=== PATIENT | female | born 1980 | race Caucasian/White ===

== ENCOUNTER 2020-03-14 02:52 | Emergency (ER) | payer BC ==
--- NOTE | 2020-03-14 03:39 | ER Document Report ---
ED Psych Disorder / Suicide - General Stated Complaint: MANIC STATE Time Seen by Provider: 03/14/20 03:14 Primary Care Provider: JIM PANG MD [Primary Care Provider] - Follow up as needed Mode of Arrival: Ambulatory Information source: Patient Notes: 39-year-old female patient with history of mental illness presents emergency department with concerns for lack of sleep, suicidal ideations, and angry outburst. Her spouse is with her, he states that she was walking outside naked and that she tried lighting the stove and leaving it on. He states she has been under a lot of stress lately. TRAVEL OUTSIDE OF THE [place] IN LAST 30 DAYS: No - Related Data Allergies/Adverse Reactions: erythromycin base [Erythromycin Base] Allergy (Mild, Verified 11/02/13 13:37) Past Medical History - General Information source: Patient - Social History Smoking Status: Never Smoker Frequency of alcohol use: None Drug Abuse: None Family History: Reviewed & Not Pertinent Psychiatric Medical History: Reports: Hx Depression, Hx Schizophrenia - Immunizations Hx Diphtheria, Pertussis, Tetanus Vaccination: Yes Review of Systems - Review of Systems Constitutional: No symptoms reported EENT: No symptoms reported Cardiovascular: No symptoms reported Respiratory: No symptoms reported Gastrointestinal: No symptoms reported Genitourinary: No symptoms reported Female Genitourinary: No symptoms reported Musculoskeletal: No symptoms reported Skin: No symptoms reported Hematologic/Lymphatic: No symptoms reported Neurological/Psychological: See HPI Physical Exam - Vital signs Vitals: Temp Pulse Resp BP Pulse Ox 98.4 F 98 20 145/95 H 99 03/14/20 03:00 03/14/20 03:00 03/14/20 03:00 03/14/20 03:00 03/14/20 03:00 - Notes Notes: PHYSICAL EXAMINATION: GENERAL: Well-appearing, well-nourished. HEAD: Atraumatic, normocephalic. EYES: Pupils equal round and reactive to light, extraocular movements intact, conjunctiva are normal. ENT: Nares patent, oropharynx clear without exudates. Moist mucous membranes. NECK: Normal range of motion, supple without lymphadenopathy LUNGS: Breath sounds clear to auscultation bilaterally and equal. No wheezes rales or rhonchi. HEART: Regular rate and rhythm without murmurs ABDOMEN: Soft, nontender, nondistended abdomen. No guarding, no rebound. No masses appreciated. Female : deferred Musculoskeletal: Normal range of motion, no pitting or edema. No cyanosis. NEUROLOGICAL: Cranial nerves grossly intact. Normal speech, normal gait. Normal sensory, motor exams PSYCH: Flat affect, flight of ideas, patient using word salad. SKIN: Warm, Dry, normal turgor, no rashes or lesions noted. Course - Re-evaluation Re-evalutation: 03/14/20 06:54 Patient was placed on IVC papers immediately after evaluation. She is alert to self and place but is not making any logical sense. Patient keeps yelling out illogical sentences. Her significant other reports she was running out the front door naked. He states that she has been seen for mental health issues in the past. She will be seen by psych later on this morning. She is medically cleared at this time. - Vital Signs Vital signs: Temp Pulse Resp BP Pulse Ox 98.4 F 98 20 145/95 H 99 03/14/20 03:00 03/14/20 03:00 03/14/20 03:00 03/14/20 03:00 03/14/20 03:00 - Laboratory Result Diagrams: 03/14/20 04:25 03/14/20 04:25 Laboratory results interpreted by me: 03/14/20 03/14/20 03/14/20 04:25 04:25 04:25 WBC 11.9 H MCV 78 L MCH 25.1 L RDW 16.7 H Absolute Neuts (auto) 8.3 H BUN 6 L Glucose 120 H Urine Blood SMALL H Salicylates < 1.0 L Acetaminophen < 10 L - EKG Interpretation by Fl EKG shows normal: Sinus rhythm Rate: Normal Rhythm: NSR - rate 71, normal axis, normal intervals Discharge - Discharge Clinical Impression: Bizarre behavior, Agitated depression, Non compliance w medication regimen Condition: Stable Disposition: PSYCH HOSP/UNIT Referrals: JIM PANG MD [Primary Care Provider] - Follow up as needed
[2020-03-14] MEDS ORDERED: HALOPERIDOL LACTATE INJ 5 MG/1 ML VIAL IM ONE (04:34)
[2020-03-14] MEDS ORDERED: LORAZEPAM INJ 2 MG/1 ML VIAL IM ONE (04:34)
[2020-03-14] MEDS ORDERED: DIPHENHYDRAMINE HCL 50 MG/ML VIAL IM ONE (04:35)
[2020-03-14 05:12] LABS: ABSOLUTE BASOPHILS # (AUTO) 0.1 10^3/uL (0.0-0.2); ABSOLUTE EOSINOPHILS # (AUTO) 0.1 10^3/uL (0.0-0.6); ABSOLUTE LYMPHOCYTES (AUTO) 2.6 10^3/uL (0.5-4.7); ABSOLUTE MONOCYTES (AUTO) 0.9 10^3/uL (0.1-1.4); ABSOLUTE NEUT (AUTO) 8.3 10^3/uL (1.7-8.2); BASOPHILS % (AUTO) 0.5 % (0-2); EOSINOPHILS % (AUTO) 0.9 % (0-6); HEMATOCRIT 40.5 % (36.0-47.0); LYMPHOCYTES % (AUTO) 21.5 % (13-45); MEAN CORPUSCULAR HEMOGLOBIN 25.1 pg (27.0-33.4); MEAN CORPUSCULAR HGB CONC 32.1 g/dL (32.0-36.0); MEAN CORPUSCULAR VOLUME 78 fl (80-97); MONOCYTES % (AUTO) 7.5 % (3-13); PLATELET COUNT 390 10^3/uL (150-450); RED BLOOD COUNT 5.17 10^6/uL (3.72-5.28); RED CELL DISTRIBUTION WIDTH 16.7 % (11.5-14.0); SEGMENTED NEUTROPHILS % (AUTO) 69.6 % (42-78); TOTAL CELLS COUNTED % (AUTO) 100 %; WHITE BLOOD COUNT 11.9 10^3/uL (4.0-10.5)
[2020-03-14 05:17] LABS: APPEARANCE,URINE CLEAR; BILIRUBIN,URINE NEGATIVE (NEGATIVE); COLOR,URINE STRAW; GLUCOSE, URINE NEGATIVE (NEGATIVE); KETONES,URINE NEGATIVE (NEGATIVE); LEUKOCYTE ESTERASE,URINE NEGATIVE (NEGATIVE); NITRITE,URINE NEGATIVE (NEGATIVE); PROTEIN,URINE NEGATIVE (NEGATIVE); URINE SPECIFIC GRAVITY 1.002; UROBILINOGEN,URINE NEGATIVE mg/dL (<2.0)
[2020-03-14 05:36] LABS: ALBUMIN 4.5 g/dL (3.5-5.0); ALKALINE PHOSPHATASE 92 U/L (38-126); ANION GAP 7 (5-19); ASPARTATE AMINO TRANSFERASE 29 U/L (14-36); BILIRUBIN,TOTAL 0.6 mg/dL (0.2-1.3); BLOOD UREA NITROGEN 6 mg/dL (7-20); CALCIUM 9.3 mg/dL (8.4-10.2); CARBON DIOXIDE 26 mmol/L (22-30); CHLORIDE 105 mmol/L (98-107); GLUCOSE 120 mg/dL (75-110); POTASSIUM 3.9 mmol/L (3.6-5.0); TOTAL PROTEIN 7.8 g/dL (6.3-8.2)
[2020-03-14 05:40] LABS: ACETAMINOPHEN < 10 ug/mL (10-30); ALCOHOL < 10 mg/dL (NONE DETECTED); SALICYLATE < 1.0 mg/dL (2.0-20.0)
[2020-03-14 05:45] LABS: URINE AMPHETAMINES SCREEN NEGATIVE; URINE BARBITURATES SCREEN NEGATIVE; URINE BENZODIAZEPINES SCREEN NEGATIVE; URINE COCAINE SCREEN NEGATIVE; URINE METHADONE SCREEN NEGATIVE; URINE PHENCYCLIDINE SCREEN NEGATIVE
[2020-03-14 05:56] LABS: URINE MARIJUANA (THC) SCREEN UNCONFIRMED POSITIVE
--- NOTE | 2020-03-14 07:27 | EKG REPORT ---
SEVERITY:- DEFECTIVE ECG - SINUS ARRHYTHMIA, RATE 65-81 VENTRICULAR PREMATURE COMPLEX (NO,, TECHNICAL ERROR) : Confirmed by: Donovan Sanchez MD 14-Mar-2020 07:26:20
[2020-03-14] MEDS ORDERED: CHLORPROMAZINE HCL 50 MG TABLET PO ONE (09:32)
--- NOTE | 2020-03-14 09:34 | ER Document Report ---
Doctor's Note Notes: 03/14/20 09:33 Patient continues with nonlinear speech and flights of ideas. Patient occasionally wandering out of room. Patient awaiting behavioral health team evaluation at this time. 03/14/20 12:59 Patient has been accepted to [facility] and is stable for transfer at this time.
[2020-03-14] MEDS ORDERED: METFORMIN HCL 500 MG TABLET PO SCH (10:00)
[2020-03-14] MEDS ORDERED: CHLORPROMAZINE HCL INJ 25 MG/1 ML AMPULE IM ONE (10:02)
[2020-03-14 13:09] VITALS: BP 134/84
== END 2020-03-14 13:13 ==
LOC: ER 02:52
DX: F32.2 Major depressive disorder, single episode, severe without psychotic features (principal); F91.9 Conduct disorder, unspecified; R45.851 Suicidal ideations; Z91.14 Patient's other noncompliance with medication regimen
CPT/HCPCS: 93005; 99285; 96372; 36415; 80307 ×4; 85025; 80053; 81001; 93010; J3230; J1200; J1630; J2060